=== PATIENT | male | born 1970 | race Two or more races ===

== ENCOUNTER → 2018-01-29 | Outpatient (CLI) | payer SELFPAY ==
--- NOTE | 2018-01-29 17:59 | RADIOLOGY IMAGING REPORT ---
FACILITY: [facility] PATIENT NAME: Barber Vincent : 1970 MR: [id number] V: [id number] EXAM DATE: ORDERING PHYSICIAN: GAVIN DIAS TECHNOLOGIST: Location: [facility] [place] Patient: Barber Vincent : 1970 Visit/Account:[id number] Date of Sevice: 01/29/2018 Venous Doppler ultrasound right lower extremity Indication: Right leg edema.. Comparison: None Available Findings: Duplex Doppler and color flow imaging was performed. The common femoral, femoral, and popl iteal veins are all patent and compressible with normal Doppler wave forms. There are normal respons es to augmentation. The posterior tibial and peroneal veins are patent in the calf. The proximal greater saphenous vein i s also normal. Subcutaneous tissues are unremarkable. IMPRESSION: 1. No evidence of deep venous thrombosis of the right lower extremity. Report Dictated By: Terrence Aguirre at 01/29/2018 5:55 PM Report E-Signed By: Terrence Aguirre at 01/29/2018 5:56 PM WSN:[id number]
== END ==
LOC: US 16:54
PROVIDERS: ATTEND Physician Assistant Medical
DX: R60.0 Localized edema (principal)